=== PATIENT | female | born 1945 | race Caucasian/White ===

== ENCOUNTER → 2023-10-07 08:45 | Outpatient (REF) | payer MEDICARE, OTHER, SELFPAY | LOC: RAD 08:45 | PROVIDERS: ATTENDING PHYSICIAN Obstetrics & Gynecology Gynecology; FAMILY PHYSICIAN Family Medicine | DX: M85.89 Other specified disorders of bone density and structure, multiple sites (principal) | CPT/HCPCS: 77080 ==

== ENCOUNTER → 2023-10-23 07:49 | Outpatient (REF) | payer MEDICARE, OTHER, SELFPAY | LOC: WDC 07:49 | PROVIDERS: ATTENDING PHYSICIAN Obstetrics & Gynecology Gynecology; FAMILY PHYSICIAN Family Medicine | DX: R92.8 Other abnormal and inconclusive findings on diagnostic imaging of breast (principal) | CPT/HCPCS: 76642 ==

== ENCOUNTER → 2024-04-28 08:07 | Outpatient (REF) | payer MEDICARE, OTHER, SELFPAY | LOC: WDC 08:07 | PROVIDERS: ATTENDING PHYSICIAN Obstetrics & Gynecology Gynecology; FAMILY PHYSICIAN Family Medicine | DX: Z12.31 Encounter for screening mammogram for malignant neoplasm of breast (principal) | CPT/HCPCS: 77063; 77067 ==

== ENCOUNTER → 2024-05-13 08:20 | Outpatient (REF) | payer MEDICARE, OTHER, SELFPAY | LOC: WDC 08:20 | PROVIDERS: ATTENDING PHYSICIAN Obstetrics & Gynecology Gynecology; FAMILY PHYSICIAN Family Medicine | DX: R92.8 Other abnormal and inconclusive findings on diagnostic imaging of breast (principal) | CPT/HCPCS: 76642 ==

== ENCOUNTER → 2024-10-10 14:00 | Outpatient (REF) | payer MEDICARE, OTHER, SELFPAY | LOC: RAD 14:00 | PROVIDERS: ATTENDING PHYSICIAN Internal Medicine Gastroenterology; FAMILY PHYSICIAN Family Medicine | DX: R10.10 Upper abdominal pain, unspecified (principal) | CPT/HCPCS: 76700 ==

== ENCOUNTER 2024-10-26 11:58 | Emergency (ER) | payer MEDICARE, OTHER, SELFPAY ==
[2024-10-26 12:00] VITALS: BP 170/91
--- NOTE | 2024-10-26 12:40 | ED.GENMED ---
History of Present Illness
General
Chief Complaint: Abdominal Pain
Source: patient
Time Seen by Provider: 10/26/24 12:25
History of Present Illness
History of Present Illness:
79-year-old female with past medical history of previous ovarian cancer status post hysterectomy, GERD, diverticulitis presenting to the emergency department for evaluation of generalized abdominal pain that started early this morning accompanied
with multiple episodes of bright red blood per rectum without any stool with patient stating this feels similar to previous episode of diverticulitis. She denies any fevers, chills, rigors. She does note decreased p.o. intake due to lack of
appetite. She does note last colonoscopy was probably around 5 years ago and was recommended to have another one but states due to social issues was unable to get this scheduled. Patient is not on any anticoagulants. Denies any chest pain,
shortness of breath, exertional dyspnea, orthopnea or any other respiratory concerns. Denies ever having a need for blood transfusion. No other concerns presently.
Past History
Past History
ED Past Medical History: Cancer, GERD and Other (Ovarian CA)
ED Past Surgical History: Appendectomy, Gynecological and Orthopedic
Social History
Tobacco: Non-smoker
Alcohol: Occasional
Drug: None
Personal:
Living: with family
Review of Systems
Review of Systems
All Other Systems: ROS reviewed and negative except as documented in HPI and ROS
Phy Exam
Physical Exam
Physical Exam:
GENERAL: Alert , in no apparent distress
EYE: clear conjunctiva b/l
HEAD: NCAT
ENT: mmm.
CARDIAC: Regular rate and rhythm .
LUNGS: Clear breath sounds bilaterally, no acute respiratory distress, no wheezes/rales/rhonchi
ABDOMEN: Soft, generalized tenderness, no r/g, no cvat
NEUROLOGICAL: Alert and oriented
SKIN: Warm and dry, skin intact.
MUSCULOSKELETAL: well perfused.
PSYCH: Normal and appropriate interaction.
Scores
Heart Failure Risk
Heart Failure Risk Score: Not Applicable
Heart Score for Chest Pain Patients
STEMI patient?: Not applicable
Withdrawal Assessment of Alcohol
Withdrawal Assessment Completed?: Not applicable
Course
Orders/Labs/Results
Orders:
Orders
10/26/24 12:34
CT Abd/pelvis W Iv Cont Urgent
Comment:
Reason For Exam: generalized abd pain, hx divertic, bleeding
10/26/24 12:42
Type+Screen Urgent
Complete Blood Count/With Diff Urgent
Comprehensive Metabolic Panel Urgent
PTT Urgent
Prothrombin Time Urgent
Abnormal Lab Results
10/26/24
12:42
Hgb 16.6 H g/dL
(12.0-16.0)
Hct 47.6 H %
(37.0-47.0)
Absolute Neuts (auto) 8.5 H 10^3/uL
(1.4-6.5)
Absolute Lymphs (auto) 1.1 L 10^3/uL
(1.2-3.4)
Neutrophils % 84.1 H %
(42.2-75.2)
Lymphocytes % 10.6 L %
(20.5-51.1)
Chloride 108 H mmol/L
(98-107)
Creatinine 0.5 L mg/dL
(0.6-1.0)
Glucose 120 H mg/dl
(70-99)
10/26/24 12:42
10/26/24 12:42
Vital Signs
Initial and Last Documented VS:
Initial Vital Signs
Temp Pulse Resp BP Pulse Ox
97.8 F 98 18 170/91 99
10/26/24 12:00 10/26/24 12:00 10/26/24 12:00 10/26/24 12:00 10/26/24 12:00
Last Documented Vital Signs
Temp Pulse Resp BP Pulse Ox
97.8 F 98 18 147/66 95
10/26/24 12:00 10/26/24 12:00 10/26/24 12:00 10/26/24 16:00 10/26/24 16:00
MDM/Problems Addressed
Differential Diagnosis Includes:
Diverticulitis, bleeding internal hemorrhoid, colitis, less likely infectious diarrhea, anemia
MDM/Problems Addressed:
79-year-old female presenting to the emergency department for evaluation of acute onset of abdominal pain accompanied with multiple episodes of bright red blood per rectum without any stool. Patient states last episode was around 1 hour prior to
arrival to the emergency department and none since. Denies any use of anticoagulants. Patient arrives to the emergency department actually hypertensive. No tachycardia. Mild tenderness on her exam but otherwise reassuring exam. Will check labs
and CT imaging. Patient advised that if she is to have any further bleeding to notify us as would change CT scan to an angiogram to evaluate for any areas of active bleeding.
*Radiology
Radiology exam reviewed: radiology read reviewed
*Pulse Oximetry
Patient hypoxic: no
*Critical Care Note
Total Time (30-74mins, 75-104mins- exclusive of procedures): Not Applicable
Data Reviewed
Review of Other/Old Records Reveals: Records (Colonoscopy in May 2019 shows a few polyps. These were resected. There was also diverticulum noted in addition to internal hemorrhoids)
Source: patient
Patient Management
Social determinants of health affecting care: Living situation and Strong social support
Escalation/DeEscalation of care consider admission/obs:
Patient CT scan shows slight stranding of the fat surrounding the descending colon likely correlating with colitis but could also represent infectious colitis and inflammatory bowel disease. Given patient's age I am less concerned about IBD.
Patient is afebrile, no leukocytosis making infectious colitis a little less likely. I suspect more of an inflammatory colitis. Other incidental findings discussed and do not seem to have relation to patient's presenting symptoms today. Given
patient is hemodynamically stable, hemoglobin of greater than 16 and without any pain at this time I do think it is reasonable for outpatient management. Advised on supportive measures. I will prescribe an antibiotic however at this time I advised
patient to wait and see if symptoms resolve on their own. If bleeding does seem to worsen or patient is developing worsening pain to present back to the emergency department. She also notes that she can follow-up with her primary care provider.
If symptoms are not worsening and do not seem to be improving she was given a prescription for an antibiotic to trial.
ED Attending Note
-
Portions of this chart may have been created with voice recognition software.� Occasional wrong word or��sound alike� substitutions may have occurred due to the inherent limitations of voice recognition software.
Discharge Plan
Departure
Patient Disposition: Home (Routine Discharge)
Date of Disposition: 10/26/24
Time of Disposition: 16:05
Patient with high blood pressure during this ER visit?: Yes
Discharge Problem:
Colitis
Instructions: Colitis - Discharge instructions
Prescriptions:
New
amoxicillin-pot clavulanate 875-125 mg tablet
1 tab PO BID 10 Days Qty: 20 0RF
No Action
betamethasone valerate 0.1 % Ointment
1 applic TOPICAL BID
Rx Instructions:
external vaginal
calcium carbonate-vitamin D3 [Calcium + D] 600 mg-5 mcg (200 unit) Tablet
1 tab PO DAILY
omeprazole 20 mg Capsule,Delayed Release(Dr/Ec)
20 mg PO DAILY
coenzyme Q10 [CoQ-10] 100 mg Capsule
100 mg PO DAILY
turmeric 400 mg Capsule
400 mg PO DAILY
Referrals:
Mary Zepeda MD [Family Provider] -
Interventions
Interventions:
*Risk Screen - Suicide Last Done: 10/26/24 12:05
*General Assessment Last Done: 10/26/24 12:53
*Neglect/Abuse Screening Last Done: 10/26/24 12:03
*ED- Fall Risk Assessment Last Done: 10/26/24 12:53
*ED COVID-19 Vaccine History Last Done: 10/26/24 12:03
*Nursing Disposition Last Done: 10/26/24 16:12
XT-Vhuboh-Mzwogfmhwj Assessment Last Done: 10/26/24 12:55
Discharge Date and Time
Discharge Date/Time: 10/26/24 16:17
Print Language: SPANISH
[2024-10-26 12:41] VITALS: BP 155/70
[2024-10-26 12:52] VITALS: BMI 39.0
[2024-10-26 13:00] VITALS: BP 165/63
[2024-10-26 13:01] LABS: % Basophils 0.2 % (0-2); % Eosinophils 0.1 % (0-6); % Immature Granulocytes 0.3 % (0-0.5); % Lymphocytes 10.6 % (20.5-51.1); % Monocytes 4.7 % (1.7-9.3); % Neutrophils 84.1 % (42.2-75.2); Absolute Lymphocytes 1.1 10^3/uL (1.2-3.4); Absolute Monocytes 0.5 10^3/uL (0.1-0.6); Absolute Neutrophils 8.5 10^3/uL (1.4-6.5); Hematocrit 47.6 % (37.0-47.0); Hemoglobin 16.6 g/dL (12.0-16.0); Mean Corp Hgb Conc. 34.9 g/dL (33.0-37.0); Mean Corpuscular Volume 88.8 fL (81.0-99.0); Mean Platelet Volume 9.3 fL (7.4-10.4); Nucleated Red Blood Cells % 0 %; Platelet Count 226 10^3/uL (130-400); Red Blood Cell Count 5.36 10^6/uL (4.20-5.40); Red Cell Dist. Width 13.1 % (11.5-14.5)
[2024-10-26 13:12] LABS: INR 1.03; PT 14.1 Sec (11.4-14.6)
[2024-10-26 13:13] LABS: APTT 24.5 Sec (23.4-35.0)
[2024-10-26 13:45] LABS: ALT (SGPT) 30 U/L (0-35); AST (SGOT) 25 U/L (14-36); Albumin 3.9 g/dl (3.5-5.0); Alkaline Phosphatase 97 U/L (38-126); Blood Urea Nitrogen 11 mg/dl (7-17); Calcium 9.1 mg/dl (8.4-10.2); Carbon Dioxide 23 mmol/L (22-30); Chloride 108 mmol/L (98-107); Estimated Creatinine Clearance 88 ml/min; Glucose 120 mg/dl (70-99); Potassium 4.1 mmol/L (3.5-5.1); Sodium 138 mmol/L (135-145); Total Protein 6.3 g/dl (6.3-8.2); eGFR > 60.00
[2024-10-26 14:00] VITALS: BP 177/75
[2024-10-26 15:50] VITALS: BP 126/67
[2024-10-26 16:00] VITALS: BP 147/66
== END 2024-10-26 16:17 | disposition home or self-care (01) ==
LOC: EMR 11:58
PROVIDERS: Physician Assistant Medical; EMERGENCY PHYSICIAN Emergency Medicine; FAMILY PHYSICIAN Family Medicine
DX: K52.9 Noninfective gastroenteritis and colitis, unspecified (principal); Z85.43 Personal history of malignant neoplasm of ovary; Z90.710 Acquired absence of both cervix and uterus; Z90.49 Acquired absence of other specified parts of digestive tract
CPT/HCPCS: 99284; 74177; 80053; 85025; 85610; 85730; 86850; 86900; 86901; Q9967

== ENCOUNTER → 2024-11-07 07:59 | Outpatient (REF) | payer MEDICARE, OTHER, SELFPAY | LOC: WDC 07:59 | PROVIDERS: ATTENDING PHYSICIAN Obstetrics & Gynecology Gynecology; FAMILY PHYSICIAN Family Medicine | DX: R92.8 Other abnormal and inconclusive findings on diagnostic imaging of breast (principal) | CPT/HCPCS: 76642 ==

== ENCOUNTER 2025-01-19 06:27 | Day surgery (SDC) | payer MEDICARE, OTHER, SELFPAY | END 2025-01-19 14:44 | disposition home or self-care (01) | LOC: GI 06:27 | PROVIDERS: ATTENDING PHYSICIAN Internal Medicine Gastroenterology | DX: Z12.11 Encounter for screening for malignant neoplasm of colon (principal); Z86.0101 Personal history of adenomatous and serrated colon polyps; R93.3 Abnormal findings on diagnostic imaging of other parts of digestive tract; K57.30 Diverticulosis of large intestine without perforation or abscess without bleeding; K63.5 Polyp of colon | CPT/HCPCS: 45380; 88305 ==

== ENCOUNTER → 2025-05-02 08:01 | Outpatient (REF) | payer MEDICARE, OTHER, SELFPAY | LOC: WDC 08:01 | PROVIDERS: ATTENDING PHYSICIAN Obstetrics & Gynecology Gynecology; FAMILY PHYSICIAN Family Medicine | DX: Z12.31 Encounter for screening mammogram for malignant neoplasm of breast (principal) | CPT/HCPCS: 77063; 77067 ==